=== PATIENT | male | born 1935 | race Caucasian/White ===

== ENCOUNTER → 2016-07-29 | Outpatient (CLI) | payer MEDICARE, OTHER | LOC: GMAJ 13:28 | PROVIDERS: ATTEND Family Medicine | DX: R41.82 Altered mental status, unspecified (principal); R53.1 Weakness; W19.XXXA Unspecified fall, initial encounter ==

== ENCOUNTER → 2016-09-12 | Outpatient (CLI) | payer OTHER | END | disposition home or self-care (01) | LOC: BFHH 11:52 | PROVIDERS: ATTEND Family Medicine | DX: E11.9 Type 2 diabetes mellitus without complications (principal); E78.2 Mixed hyperlipidemia; I10 Essential (primary) hypertension; R07.89 Other chest pain ==

== ENCOUNTER → 2016-10-17 | Outpatient (CLI) | payer MEDICARE, OTHER ==
--- NOTE | 2016-10-17 16:39 | RAD ---
EXAM DESCRIPTION: Foot,Left 3 Views CLINICAL HISTORY: 81 years Male, left foot pain. IMPRESSION: 3 views of the left foot are submitted for interpretation. Arthrodesis with hardware of the first TMT joint. 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 Degenerative changes noted within the first MTP joint. No evidence of a fracture on today's exam. Plantar spur noted. Electronically signed by: Esau Rutherford MD 10/17/2016 4:38 PM CDT
--- NOTE | 2016-10-17 16:40 | RAD ---
EXAM DESCRIPTION: Foot,Right 3 Views CLINICAL HISTORY: 81 years Male, chronic right foot pain, no trauma IMPRESSION: 3 views of the right foot no evidence of fracture change of the first MTP joint. Calcaneal spur noted. Degenerative change of the midfoot most pronounced at the talonavicular joint. Electronically signed by: Esau Rutherford MD 10/17/2016 4:39 PM CDT
== END | disposition home or self-care (01) ==
LOC: RAD 09:18
PROVIDERS: ATTEND Orthopaedic Surgery
DX: M79.671 Pain in right foot (principal); M79.672 Pain in left foot

== ENCOUNTER 2016-10-21 19:01 | Emergency (ER) | payer MEDICARE, OTHER ==
[2016-10-21] MEDS ORDERED: NITROGLYCERIN 0.4 MG 25 EA TAB SL ONE ×4 (19:05→19:23)
[2016-10-21] MEDS ORDERED: ASPIRIN TABLET 325 MG TAB ONE (19:05)
[2016-10-21] MEDS ORDERED: ASPIRIN TABLET 325 MG TAB PO ONE (19:23)
[2016-10-21 19:32] VITALS: TEMP 98.8
--- NOTE | 2016-10-21 19:34 | ED.PDOC ---
History of Present Illness - General Chief Complaint: Chest Pain/NC Stated Complaint: CP Time Seen by Provider: 10/21/16 19:22 Source: patient, RN notes reviewed, Vital Signs reviewed, family Exam Limitations: other - mild dementia - History of Present Illness Initial Comments: Patient/ reports sudden onset of chest pain ~30 minutes prior to arrival at ER. This started right after they had an argument. He is not a good historian. + radiation to L upper arm. + nausea. No SOB or sweating. Unclear on intensity of pain. Reported 5/10 in ER. Says it was worsen on his way here @ 3/10 and after 2 SLNTG was 8/10. No similar episodes in the past. Timing/Duration: 1/2 hour Severity/Quality: moderate, pressure Location: substernal Chest Pain Radiation: arms - L upper arm Prior Chest Pain/Cardiac Workup: no prior chest pain, no prior cardiac workup Improving Factors: nothing Worsening Factors: nothing Nitro Today/Relief: no nitro taken today Aspirin Treatment Today: 81 mg x 1 Associated Symptoms: headache, nausea/vomiting Allergies/Adverse Reactions: Allergies Penicillins Allergy (Verified 10/21/16 19:39) Home Medications: Ambulatory Orders Carvedilol 6.25 mg PO BID 11/10/12 Glimepiride [Amaryl] 4 mg PO BID 11/10/12 Memantine [Namenda] 10 mg PO BID 11/10/12 Metformin HCl [Metformin HCl ER] 500 mg PO BID 12/08/14 Pravastatin Sodium 40 mg PO .EVENING 12/08/14 l-Methylfolate W/ Algae-Vitami [Metanx 3-90.314-2-35 mg] 1 cap PO BID 12/08/14 Aspirin [Aspirin Adult Low Dose] 81 mg PO DAILY #30 tab 07/20/16 Review of Systems - Review of Systems Constitutional: States: no symptoms reported. Denies: chills, diaphoresis, fever, malaise, weakness EENTM: States: no symptoms reported Respiratory: States: no symptoms reported. Denies: cough, orthopnea, short of breath Cardiology: States: see HPI, chest pain. Denies: edema, palpitations, syncope Gastrointestinal/Abdominal: States: nausea. Denies: abdominal pain, diarrhea, vomiting Genitourinary: States: no symptoms reported Musculoskeletal: States: no symptoms reported Skin: States: no symptoms reported Neurological: States: headache. Denies: numbness, paresthesia, tingling, weakness Endocrine: States: no symptoms reported Hematologic/Lymphatic: States: no symptoms reported Past Medical History (General) - Patient Medical History Hx Seizures: No Hx Stroke: No Hx Dementia: No Hx Asthma: No Hx of COPD: No Hx Cardiac Disorders: No Hx Congestive Heart Failure: No Hx Pacemaker: No Hx Hypertension: Yes Hx Thyroid Disease: No Hx Diabetes: Yes Hx Gastroesophageal Reflux: No Hx Renal Disease: No Hx Cancer: No Hx of HIV: No Hx Hepatitis C: No Hx MRSA: No Surgical History: cholecystectomy - Vaccination History Hx Tetanus, Diphtheria Vaccination: No Hx Influenza Vaccination: Yes Hx Pneumococcal Vaccination: Yes Immunizations Up to Date: Yes - Social History Hx Tobacco Use: No Hx Chewing Tobacco Use: No Hx Alcohol Use: No Hx Substance Use: No Hx Substance Use Treatment: No Hx Depression: No Feels Threatened In Home Enviroment: No Feels Threatened In a Relationship: No Hx Physical Abuse: No Hx Emotional Abuse: No Hx Suspected Abuse: No - Female History Patient : No Family Medical History - Family History Father Family History: Unknown Living Status: Unknown Hx Family Asthma: No Hx Family Congestive Heart Failure: Yes Hx Family Hypertension: Yes Hx Family Stroke: No Hx Cardiac Disease: No Hx Family Diabetes: Yes Hx Family Cancer: No Physical Exam - Physical Exam General Appearance: Alert, Comfortable, No apparent distress, Well Developed, Well Groomed, Well Hydrated, Well Nourished Neck: non-tender, full range of motion, supple, normal inspection Respiratory: chest non-tender, lungs clear, normal breath sounds, no respiratory distress, no accessory muscle use Cardiovascular/Chest: normal peripheral pulses, regular rate, rhythm, no edema, no gallop, no JVD, no murmur Peripheral Pulses: posterior tibialis,right: 2+, posterior tibialis,left: 2+ Gastrointestinal/Abdominal: normal bowel sounds, non tender, soft, no organomegaly, no pulsatile mass Extremity: normal range of motion, non-tender, normal inspection, no pedal edema Neurologic: no motor/sensory deficits, alert, normal mood/affect Skin Exam: normal color, warm/dry Lymphatic: no adenopathy Comments: Vital Signs - 24 hr 10/21/16 10/21/16 10/21/16 19:15 19:20 19:21 Temperature 98.8 F Pulse Rate [ 77 78 73 monitor] Respiratory 16 Rate Blood Pressure 165/126 158/85 193/98 [Right Arm] O2 Sat by Pulse 98 Oximetry 10/21/16 10/21/16 19:25 19:51 Temperature Pulse Rate [ 77 70 monitor] Respiratory 20 Rate Blood Pressure 156/77 133/55 [Right Arm] O2 Sat by Pulse 98 Oximetry Progress - Progress Progress: 10/21/16 20:10 Reports CP is better but still not clear on grading his pain. - Results/Orders Results/Orders: Laboratory Tests 10/21/16 19:15 WBC 10.9 H RBC 4.36 L Hgb 13.2 L Hct 39.5 L MCV 90.6 MCH 30.2 MCHC 33.3 RDW 14.4 Plt Count 277 MPV 7.2 L Absolute Neuts (auto) 7.00 H Absolute Lymphs (auto) 2.40 Absolute Monos (auto) 1.00 H Absolute Eos (auto) 0.30 Absolute Basos (auto) 0.10 Neutrophils % 64.8 Lymphocytes % 21.9 Monocytes % 9.4 H Eosinophils % 2.7 Basophils % 1.2 D-Dimer, Quantitative < 230 Sodium 133 L Potassium 4.4 Chloride 104 Carbon Dioxide 20 L Anion Gap 13.4 BUN 30 H Creatinine 1.14 BUN/Creatinine Ratio 26.3 H Random Glucose 135 H Serum Osmolality 274.6 L Calcium 9.8 Total Bilirubin 0.6 AST 21 ALT 18 Alkaline Phosphatase 56 Creatine Kinase 59 CK-MB (CK-2) 2.2 CK-MB (CK-2) % Not Reportable Troponin I 0.09 H* B-Natriuretic Peptide 364.0 H* Serum Total Protein 7.6 Albumin 4.3 Globulin 3.3 Albumin/Globulin Ratio 1.3 - EKG/XRAY/CT EKG: Sinus, no ST T wave changes Comments: EKG #1: Rate 73, Nl. EKG #2: Sinus with 2nd degree AV block - couplets. XRAY: chest - No acute process Departure - Departure Clinical Impression: Abnormal EKG, Elevated troponin Chest pain Qualifiers: Chest pain type: chest pain due to myocardial ischemia Qualifier Code: (I20.9) Angina pectoris, unspecified Time of Disposition: 20:12 Disposition: Transfer to Hospital Condition: Poor Departure Forms: ED Discharge - Pt. Copy, Patient Portal Self Enrollment Home Medications: Ambulatory Orders Carvedilol 6.25 mg PO BID 11/10/12 Glimepiride [Amaryl] 4 mg PO BID 11/10/12 Memantine [Namenda] 10 mg PO BID 11/10/12 Metformin HCl [Metformin HCl ER] 500 mg PO BID 12/08/14 Pravastatin Sodium 40 mg PO .EVENING 12/08/14 l-Methylfolate W/ Algae-Vitami [Metanx 3-90.314-2-35 mg] 1 cap PO BID 12/08/14 Aspirin [Aspirin Adult Low Dose] 81 mg PO DAILY #30 tab 07/20/16 Transfer to Outside Facility - Transfer Information Accepting Provider:: Dr. Paez Accepting Facility: [facility] Reason for Transfer: required specialist not available
--- NOTE | 2016-10-21 20:08 | RAD ---
PROCEDURE: XR CHEST 1 VIEW HISTORY: chest pain COMPARISON: 07/20/2016 TECHNIQUE: Single projection of the chest was done. FINDINGS: The lung verduzco are well inflated . There are no discrete airspace infiltrates, pneumothoraces or pleural effusions. The pulmonary vascularity is normal. The cardiomediastinal silhouette is stable. IMPRESSION: There is no acute pleural-parenchymal process seen in the imaged lung verduzco. Location of Interpretation: Teleradiology Electronically signed by: Yazan Rm MD 10/21/2016 8:07 PM CDT
[2016-10-21] MEDS ORDERED: MORPHINE SULFATE INJ 10 MG/ML VIAL IV ONE (20:14)
[2016-10-21] MEDS ORDERED: MORPHINE SULFATE INJ 10 MG/ML VIAL ONE (20:14)
[2016-10-21 20:46] VITALS: BP 122/71
[2016-10-21 20:47] VITALS: O2SAT 100
== END 2016-10-21 20:52 | disposition short-term general hospital (02) ==
LOC: ER 19:01
DX: I20.9 Angina pectoris, unspecified (principal); I44.1 Atrioventricular block, second degree; I10 Essential (primary) hypertension; R79.89 Other specified abnormal findings of blood chemistry; R94.31 Abnormal electrocardiogram [ECG] [EKG]; Z88.0 Allergy status to penicillin; Z79.899 Other long term (current) drug therapy; Z79.82 Long term (current) use of aspirin
CPT/HCPCS: 36415; 71010; 80053; 82550; 82553; 83880; 84484; 85025; 85379; 93005; J2270

== ENCOUNTER → 2016-10-30 | Outpatient (CLI) | payer MEDICARE, OTHER | LOC: EDSTATUS 15:58 → LAB 17:59 → BFHOS 17:59 | PROVIDERS: ATTEND Family Medicine | DX: R30.0 Dysuria (principal) ==